=== PATIENT | male | born 1945 | race African-American/Black ===

== ENCOUNTER 2016-10-07 15:34 | Observation (INO) | payer MEDICARE, MEDICAID ==
[~2016-10-07] VITALS: Ht 177.8 cm; Wt 59.0 kg
[2016-10-07] MEDS ORDERED: SODIUM CHLORIDE 0.9% 1,000 ML IV ONE (16:13)
[2016-10-07 16:48] LABS: BASOPHILS % 0.4 % (0.0-2.0); EOSINOPHILS % 0.6 % (0.0-5.0); HEMATOCRIT. 36.8 % (42.0-52.0); HEMOGLOBIN. 12.3 g/dL (14.0-18.0); LYMPHOCYTES % 23.8 % (20.0-50.0); MEAN CORPUSCULAR VOLUME 93.1 fL (80.0-94.0); MEAN PLATELET VOLUME 10.3 fl (7.4-10.4); MONOCYTES % 8.7 % (2.0-8.0); NEUTROPHILS % 66.5 % (40.0-76.0); PLATELET 186 x1000/uL (130-400); RED BLOOD CELL COUNT 3.96 mill/uL (4.7-6.1); RED CELL DISTRIBUTION WIDTH 13.6 % (11.6-14.6)
[2016-10-07 16:51] LABS: CHLORIDE 107 mEq/L (98-107)
[2016-10-07 16:52] LABS: PROTHROMBIN TIME 10.7 sec
[2016-10-07 16:55] LABS: AMMONIA 35 uMol/L (<32)
[2016-10-07 17:03] LABS: CARBON DIOXIDE 26 mEq/L (21-32); CREATINE KINASE 58 IU/L (39-308); ETHANOL BLOOD < 10 mg/dL; TROPONIN I < 0.02 ng/mL (0.00-0.04)
[2016-10-07] MEDS ORDERED: SODIUM POLYSTYRENE SULFONATE 15 G/60 ML BOT PO ONE (18:00)
[2016-10-07] MEDS ORDERED: ASPIRIN 81MG TABLET PO ONE (19:15)
[2016-10-07 21:10] LABS: CLARITY URINE CLEAR (CLEAR); COLOR URINE YELLOW (YELLOW); GLUCOSE URINE NEGATIVE (NEGATIVE); KETONES URINE NEGATIVE (NEGATIVE); LEUKOCYTE ESTERASE URINE NEGATIVE (NEGATIVE); NITRITE URINE NEGATIVE (NEGATIVE); OCCULT BLOOD URINE NEGATIVE (NEGATIVE); PROTEIN URINE NEGATIVE (NEGATIVE); UROBILINOGEN URINE 0.2 E.U./dL (0.2-1.0)
[2016-10-07 21:25] LABS: *AMPHETAMINES SCREEN URINE NEGATIVE (NEGATIVE); *BARBITURATES SCREEN URINE NEGATIVE (NEGATIVE); *BENZODIAZEPINES SCREEN URINE NEGATIVE (NEGATIVE); *COCAINE SCREEN URINE NEGATIVE (NEGATIVE); CANNABINOID URINE SCREEN PRESUMTIVE POSITIVE (NEGATIVE); METHADONE URINE SCREEN NEGATIVE (NEGATIVE); OPIATES URINE SCREEN NEGATIVE (NEGATIVE); PHENCYCLIDINE URINE SCREEN NEGATIVE (NEGATIVE)
[2016-10-07 22:00] VITALS: BP 147/79
[2016-10-07 23:00] VITALS: BP 147/79
[2016-10-07] MEDS ORDERED: GLIP10TA10 PO (23:20)
[2016-10-07] MEDS ORDERED: CLOP75TA33 PO (23:20)
[2016-10-07] MEDS ORDERED: METF10002 PO (23:20)
[2016-10-07] MEDS ORDERED: LISI-604 PO (23:20)
[2016-10-07] MEDS ORDERED: OMEP20CA10 PO (23:20)
[2016-10-07] MEDS ORDERED: ATOR20TA65 PO (23:20)
[2016-10-08] VITALS: BP 140/82
[2016-10-08] MEDS ORDERED: DEXTROSE 50% WATER 50ML SYRINGE IV PRN
[2016-10-08] MEDS: SODIUM CHLORIDE 0.9% 1,000 ML IV SCH (00:28)
[2016-10-08] MEDS: ENOXAPARIN 30MG/0.3ML SYR SUBCUT SCH ×2 (00:29→08:02)
[2016-10-08 04:00] VITALS: BP 146/82
[2016-10-08 07:09] LABS: CARBON DIOXIDE 27 mEq/L (21-32); CHLORIDE 110 mEq/L (98-107); HDL CHOLESTEROL 61 mg/dL (40-59); LDL CHOLESTEROL 44 mg/dL (5-100)
[2016-10-08 07:37] LABS: BASOPHILS % 0.4 % (0.0-2.0); EOSINOPHILS % 0.8 % (0.0-5.0); HEMATOCRIT. 35.6 % (42.0-52.0); HEMOGLOBIN. 11.7 g/dL (14.0-18.0); LYMPHOCYTES % 31.6 % (20.0-50.0); MEAN CORPUSCULAR HEMOGLOBIN 30.4 pg (28.0-32.0); MEAN CORPUSCULAR VOLUME 92.5 fL (80.0-94.0); MEAN PLATELET VOLUME 10.7 fl (7.4-10.4); MONOCYTES % 9.5 % (2.0-8.0); NEUTROPHILS % 57.7 % (40.0-76.0); PLATELET 182 x1000/uL (130-400); RED BLOOD CELL COUNT 3.85 mill/uL (4.7-6.1); RED CELL DISTRIBUTION WIDTH 13.4 % (11.6-14.6)
[2016-10-08] MEDS: BLOOD SUGAR DIAGNOSTIC STRIP TEST SCH ×4 (07:45→20:51)
[2016-10-08] MEDS: INSULIN LISPRO 100 UNITS/ML SUBCUT SCH ×4 (07:45→20:52)
[2016-10-08 08:00] VITALS: BP 139/82
[2016-10-08] MEDS: ATORVASTATIN CALCIUM 20MG TABLET PO SCH (08:01)
[2016-10-08] MEDS: PANTOPRAZOLE 40MG DR TABLET PO SCH (08:02)
[2016-10-08] MEDS: CLOPIDOGREL 75MG TABLET PO SCH (08:02)
[2016-10-08] MEDS: NIFEDIPINE XL 60MG TAB PO SCH (08:03)
[2016-10-08 12:00] VITALS: BP 142/80
[2016-10-08 16:00] VITALS: BP 141/80
[2016-10-08 20:00] VITALS: BP 138/80
[2016-10-08] MEDS ORDERED: BRIM5DRO EACHEYE (20:59)
[2016-10-09] VITALS: BP 124/70
[2016-10-09] MEDS: SODIUM CHLORIDE 0.9% 1,000 ML IV SCH (00:51)
[2016-10-09 04:00] VITALS: BP 118/75
[2016-10-09] MEDS: BLOOD SUGAR DIAGNOSTIC STRIP TEST SCH ×2 (07:23→12:41)
[2016-10-09 08:00] VITALS: BP 134/75
[2016-10-09] MEDS: PANTOPRAZOLE 40MG DR TABLET PO SCH (08:36)
[2016-10-09] MEDS: CLOPIDOGREL 75MG TABLET PO SCH (08:36)
[2016-10-09] MEDS: ATORVASTATIN CALCIUM 20MG TABLET PO SCH (08:36)
[2016-10-09] MEDS: NIFEDIPINE XL 60MG TAB PO SCH (08:36)
[2016-10-09] MEDS: INSULIN LISPRO 100 UNITS/ML SUBCUT SCH ×2 (08:38→13:18)
[2016-10-09] MEDS ORDERED: ENOXAPARIN 40MG/0.4ML SYR SUBCUT SCH (09:00)
[2016-10-09] MEDS ORDERED: ALPHAGAN P 0.1% OP SCH (09:00)
[2016-10-09 12:00] VITALS: BP 131/70
[2016-10-09 16:00] VITALS: BP 123/73
[2016-10-09 16:35] VITALS: BP 123/73
[2016-10-10] MEDS ORDERED: FAMOTIDINE 20MG TABLET PO SCH (09:00)
== END 2016-10-09 17:05 | disposition home or self-care (01) ==
LOC: ER 16:07 → EDBEDREQ 17:55 → CANBEDREQ 19:23 → ENRESERV 20:51 → 7WST 22:23 → INTOOBSV 22:23
PROVIDERS: ADMIT Internal Medicine; ATTEND Internal Medicine
DX: R41.82 Altered mental status, unspecified (principal); I10 Essential (primary) hypertension; E11.9 Type 2 diabetes mellitus without complications; E78.5 Hyperlipidemia, unspecified; F17.200 Nicotine dependence, unspecified, uncomplicated; I69.351 Hemiplegia and hemiparesis following cerebral infarction affecting right dominant side; Z87.11 Personal history of peptic ulcer disease; Z86.73 Personal history of transient ischemic attack (TIA), and cerebral infarction without residual deficits
CPT/HCPCS: 36415; 70450; 71010; 80053; 80061; 80305; 81003; 82140; 82550; 82962; 83605; 83690; 83880; 84443; 84484; 85025; 85610; 87040; 93005; 96360; 96361; 96372; 99285; G0378; G0482; J1650; J1815; J7030

== ENCOUNTER 2017-09-05 14:24 | Emergency (ER) | payer MEDICARE, MEDICAID ==
[~2017-09-05] VITALS: Ht 180.3 cm; Wt 61.0 kg
[~2017-09-05 14:24] MED LIST: ATOR20TA65 PO; BRIM5DRO EACHEYE; CLOP75TA33 PO; GLIP10TA10 PO; METF10002 PO; OMEP20CA10 PO
[2017-09-05] MEDS ORDERED: LIDOCAINE HCL 1% 20ML VIAL (Pyxis) INJ MC ONE (15:15)
[2017-09-05] MEDS ORDERED: LIDOCAINE HCL/PF 1% 10 MG/ML 5ML VIAL IJ NR (15:34)
[2017-09-05 18:44] VITALS: BP 153/72
== END 2017-09-05 18:46 | disposition home or self-care (01) ==
LOC: ER 16:00
DX: L02.212 Cutaneous abscess of back [any part, except buttock and flank] (principal); E11.9 Type 2 diabetes mellitus without complications; I10 Essential (primary) hypertension; H40.9 Unspecified glaucoma; Z86.73 Personal history of transient ischemic attack (TIA), and cerebral infarction without residual deficits; Z79.84 Long term (current) use of oral hypoglycemic drugs
CPT/HCPCS: 10060; 99283; J3490